=== PATIENT | male | born 1955 | race African-American/Black ===

== ENCOUNTER 2019-10-25 01:27 | Inpatient (IN) | payer MEDICARE, OTHER ==
[~2019-10-25] VITALS: Ht 182.9 cm; Wt 60.3 kg
[2019-10-25] MEDS ORDERED: NITROGLYCERIN 50MG PREMIX 250 ML IV ONE ×2 (02:00→02:07)
[2019-10-25] MEDS ORDERED: DILTIAZEM HCL 5MG/ML 5ML VIAL IV ONE (02:00)
[2019-10-25] MEDS ORDERED: ASPIRIN 81MG TABLET PO ONE (02:00)
[2019-10-25 02:31] LABS: BASOPHILS % 0.8 % (0.0-2.0); EOSINOPHILS % 0.2 % (0.0-5.0); HEMATOCRIT. 43.4 % (42.0-52.0); HEMOGLOBIN. 14.3 g/dL (14.0-18.0); LYMPHOCYTES % 15.4 % (20.0-50.0); MEAN CORPUSCULAR HEMOGLOBIN 27.1 pg (28.0-32.0); MEAN CORPUSCULAR VOLUME 82.2 fL (80.0-94.0); MEAN PLATELET VOLUME 8.7 fl (7.4-10.4); MONOCYTES % 10.1 % (2.0-8.0); NEUTROPHILS % 73.5 % (40.0-76.0); PLATELET 257 x1000/uL (130-400); RED BLOOD CELL COUNT 5.28 mill/uL (4.7-6.1); RED CELL DISTRIBUTION WIDTH 15.3 % (11.6-14.6)
[2019-10-25 02:35] LABS: CHLORIDE 100 mEq/L (98-107)
[2019-10-25 02:36] LABS: PARTIAL THROMBOPLASTIN TIME 23.6 sec (23.4-31.0); PROTHROMBIN TIME 11.1 sec (9.6-11.0)
[2019-10-25] MEDS ORDERED: IPRATROPIUM/ALBUTEROL 0.5-3(2.5)MG/3ML NEB HHN PRN (15:45)
[2019-10-25] MEDS ORDERED: CEFTRIAXONE 1 G PREMIX 50 ML IV SCH (16:26)
[2019-10-25] MEDS ORDERED: AZITHROMYCIN 500 MG in DEXT 5% WATER 250 ML IV SCH (16:30)
[2019-10-25] MEDS ORDERED: DEXTROSE 50% WATER 50ML SYRINGE IV PRN (17:15)
[2019-10-25] MEDS ORDERED: ACETAMINOPHEN 325MG TABLET PO PRN (17:15)
[2019-10-25 17:30] VITALS: BP 155/90
[2019-10-25 17:52] VITALS: BP 157/90
[2019-10-25] MEDS ORDERED: CEFTRIAXONE 1 G PREMIX 50 ML IV NR (18:00)
[2019-10-25] MEDS ORDERED: AZITHROMYCIN 500 MG in DEXT 5% WATER 250 ML IV NR (19:00)
[2019-10-25] MEDS: ASCORBIC ACID 500 MG TABLET PO SCH (19:10)
[2019-10-25] MEDS: ZINC SULFATE 220 MG ( 50 ) CAPSULE PO SCH (19:11)
[2019-10-25 20:00] VITALS: BP 160/85
[2019-10-25] MEDS: ENOXAPARIN 40MG/0.4ML SYR SUBCUT SCH (20:44)
[2019-10-25] MEDS: GUAIFENESIN 600MG ER TABLET PO SCH (20:45)
[2019-10-25] MEDS: INSULIN LISPRO 100 UNITS/ML SUBCUT SCH (20:48)
[2019-10-25] MEDS: BLOOD SUGAR DIAGNOSTIC STRIP TEST SCH (20:48)
[2019-10-26] VITALS: BP 165/89
[2019-10-26 07:02] LABS: BASOPHILS % 0.4 % (0.0-2.0); EOSINOPHILS % 0.1 % (0.0-5.0); HEMATOCRIT. 40.8 % (42.0-52.0); HEMOGLOBIN. 13.4 g/dL (14.0-18.0); LYMPHOCYTES % 11.9 % (20.0-50.0); MEAN CORPUSCULAR HEMOGLOBIN 26.8 pg (28.0-32.0); MEAN CORPUSCULAR VOLUME 81.7 fL (80.0-94.0); MEAN PLATELET VOLUME 8.8 fl (7.4-10.4); MONOCYTES % 11.7 % (2.0-8.0); NEUTROPHILS % 75.9 % (40.0-76.0); PLATELET 242 x1000/uL (130-400)
[2019-10-26] MEDS: BLOOD SUGAR DIAGNOSTIC STRIP TEST SCH ×4 (07:04→21:47)
[2019-10-26] MEDS: INSULIN LISPRO 100 UNITS/ML SUBCUT SCH ×4 (07:04→21:00)
[2019-10-26 07:09] LABS: CHLORIDE 104 mEq/L (98-107)
[2019-10-26 08:00] VITALS: BP 131/89
[2019-10-26 08:01] LABS: HEPATITIS B SURFACE ANTIGEN NEGATIVE
[2019-10-26 08:10] LABS: FERRITIN 1457 ng/mL (22-322)
[2019-10-26 08:31] LABS: HEPATITIS A AB IGM NEGATIVE (NEGATIVE)
[2019-10-26] MEDS: ASCORBIC ACID 500 MG TABLET PO SCH (09:42)
[2019-10-26] MEDS: GUAIFENESIN 600MG ER TABLET PO SCH ×2 (09:42→21:47)
[2019-10-26] MEDS: ZINC SULFATE 220 MG ( 50 ) CAPSULE PO SCH (09:42)
[2019-10-26 12:00] VITALS: BP 125/75
[2019-10-26 12:01] LABS: BG CARBOXYHEMOGLOBIN 0.1 % (0.5-1.5); BG DEOXYHEMOGLOBIN 0.5 % (0.0-5.0); BG FRACTION INSPIRED OXYGEN 100; BG HCO3 ACT 28.9 mmol/L (22.0-26.0); BG METHEMOGLOBIN 0.2 % (0.0-1.5); BG OXYGEN SATURATION 99.5 % (92.0-98.5); BG OXYHEMOGLOBIN 99.2 % (94.0-97.0); BG PCO2 44.8 mmHg (35.0-45.0); BG PH 7.428 (7.350-7.450); BG PO2 260.5 mmHg (75.0-100.0); BG SAMPLE SITE RIGHT RADIAL; BG TOTAL HEMOGLOBIN 13.8 g/dL (12.0-18.0); BG VENT MODE MASK - NRB
[2019-10-26] MEDS ORDERED: CEFTRIAXONE 1 G PREMIX 50 ML IV SCH (13:00)
[2019-10-26] MEDS ORDERED: IPRATROPIUM/ALBUTEROL 0.5-3(2.5)MG/3ML NEB HHN PRN (13:15)
[2019-10-26] MEDS ORDERED: LORAZEPAM 2MG/ML CPJ IV PRN (13:15)
[2019-10-26] MEDS: MULTIVITAMINS,THER W-MINERALS TABLET PO SCH (13:57)
[2019-10-26] MEDS: FOLIC ACID 1MG TABLET PO SCH (13:58)
[2019-10-26] MEDS: THIAMINE HCL 100MG TABLET PO SCH (13:58)
[2019-10-26] MEDS ORDERED: AZITHROMYCIN 500 MG in DEXT 5% WATER 250 ML IV SCH (14:00)
[2019-10-26 16:00] VITALS: BP 130/84
[2019-10-26 19:14] LABS: CLARITY URINE CLEAR (CLEAR); COLOR URINE YELLOW (YELLOW); KETONES URINE NEGATIVE (NEGATIVE); LEUKOCYTE ESTERASE URINE 1+ (NEGATIVE); NITRITE URINE NEGATIVE (NEGATIVE); OCCULT BLOOD URINE NEGATIVE (NEGATIVE); PH URINE 5.5 (4.5-8.0); PROTEIN URINE NEGATIVE (NEGATIVE)
[2019-10-26 19:26] LABS: *AMPHETAMINES SCREEN URINE NEGATIVE (NEGATIVE); *BARBITURATES SCREEN URINE NEGATIVE (NEGATIVE); *BENZODIAZEPINES SCREEN URINE NEGATIVE (NEGATIVE); *COCAINE SCREEN URINE PRESUMTIVE POSITIVE (NEGATIVE)
[2019-10-26 19:28] LABS: CANNABINOID URINE SCREEN NEGATIVE (NEGATIVE); METHADONE URINE SCREEN NEGATIVE (NEGATIVE); OPIATES URINE SCREEN NEGATIVE (NEGATIVE); PHENCYCLIDINE URINE SCREEN NEGATIVE (NEGATIVE)
[2019-10-26 20:00] VITALS: BP 151/86
[2019-10-26] MEDS: ENOXAPARIN 40MG/0.4ML SYR SUBCUT SCH (21:47)
[2019-10-27] VITALS (8 sets, daily range): BP systolic 136–168; BP diastolic 66–94
[2019-10-27] MEDS: IPRATROPIUM/ALBUTEROL 0.5-3(2.5)MG/3ML NEB HHN SCH ×3 (02:18→21:48)
[2019-10-27] MEDS: BLOOD SUGAR DIAGNOSTIC STRIP TEST SCH ×4 (06:02→21:00)
[2019-10-27] MEDS: INSULIN LISPRO 100 UNITS/ML SUBCUT SCH ×4 (06:45→21:00)
[2019-10-27] MEDS: MULTIVITAMINS,THER W-MINERALS TABLET PO SCH (08:35)
[2019-10-27] MEDS: ZINC SULFATE 220 MG ( 50 ) CAPSULE PO SCH (08:35)
[2019-10-27] MEDS: GUAIFENESIN 600MG ER TABLET PO SCH ×2 (08:35→22:06)
[2019-10-27] MEDS: FOLIC ACID 1MG TABLET PO SCH (08:35)
[2019-10-27] MEDS: THIAMINE HCL 100MG TABLET PO SCH (08:35)
[2019-10-27] MEDS: ASCORBIC ACID 500 MG TABLET PO SCH (08:35)
[2019-10-27] MEDS ORDERED: LEVO500T2 MT (11:44)
[2019-10-27] MEDS ORDERED: ALBU18HF2 IH (11:44)
[2019-10-27] MEDS ORDERED: AZITHROMYCIN 500 MG in DEXT 5% WATER 250 ML IV SCH (15:00)
[2019-10-27] MEDS: CEFTRIAXONE 1 G PREMIX 50 ML IV SCH (15:00)
[2019-10-27] MEDS: ENOXAPARIN 40MG/0.4ML SYR SUBCUT SCH (22:06)
[2019-10-28] VITALS: BP 166/102
[2019-10-28] MEDS ORDERED: CLONIDINE 0.1MG TABLET PO PRN (01:00)
[2019-10-28 04:00] VITALS: BP 167/96
[2019-10-28] MEDS: INSULIN LISPRO 100 UNITS/ML SUBCUT SCH ×3 (06:27→16:58)
[2019-10-28] MEDS: BLOOD SUGAR DIAGNOSTIC STRIP TEST SCH ×3 (06:27→16:57)
[2019-10-28 07:55] VITALS: BP 131/70
[2019-10-28] MEDS: THIAMINE HCL 100MG TABLET PO SCH (08:55)
[2019-10-28] MEDS: ZINC SULFATE 220 MG ( 50 ) CAPSULE PO SCH (08:55)
[2019-10-28] MEDS: ASCORBIC ACID 500 MG TABLET PO SCH (08:55)
[2019-10-28] MEDS: FOLIC ACID 1MG TABLET PO SCH (08:55)
[2019-10-28] MEDS: MULTIVITAMINS,THER W-MINERALS TABLET PO SCH (08:55)
[2019-10-28] MEDS ORDERED: AZITHROMYCIN 500 MG TABLET PO SCH (09:00)
[2019-10-28] MEDS: IPRATROPIUM/ALBUTEROL 0.5-3(2.5)MG/3ML NEB HHN SCH ×2 (09:16→14:47)
[2019-10-28 12:00] VITALS: BP 122/83
[2019-10-28] MEDS: GUAIFENESIN 600MG ER TABLET PO SCH (12:48)
[2019-10-28] MEDS: CEFTRIAXONE 1 G PREMIX 50 ML IV SCH (12:48)
[2019-10-28 16:00] VITALS: BP 137/67
[2019-10-29] MEDS ORDERED: MED4 MT (10:04)
== END 2019-10-28 17:00 | disposition home or self-care (01) | DRG 720 ==
LOC: ER 01:27 → 7EST 02:52 → ENRESERV 15:34 → 5WST 10-26 16:16
PROVIDERS: ADMIT Internal Medicine; ATTEND Internal Medicine
DX: A41.9 Sepsis, unspecified organism (principal); J96.00 Acute respiratory failure, unspecified whether with hypoxia or hypercapnia; E87.2 Acidosis; T40.5X1A Poisoning by cocaine, accidental (unintentional), initial encounter; R65.11 Systemic inflammatory response syndrome (SIRS) of non-infectious origin with acute organ dysfunction; J68.0 Bronchitis and pneumonitis due to chemicals, gases, fumes and vapors; I47.1 Supraventricular tachycardia; F10.10 Alcohol abuse, uncomplicated; G47.00 Insomnia, unspecified; E78.00 Pure hypercholesterolemia, unspecified; Z20.828 Contact with and (suspected) exposure to other viral communicable diseases; E11.9 Type 2 diabetes mellitus without complications; R74.0 Nonspecific elevation of levels of transaminase and lactic acid dehydrogenase [LDH]; F17.200 Nicotine dependence, unspecified, uncomplicated; I10 Essential (primary) hypertension; E78.5 Hyperlipidemia, unspecified; I16.0 Hypertensive urgency; Z91.14 Patient's other noncompliance with medication regimen; Y92.89 Other specified places as the place of occurrence of the external cause; Z71.6 Tobacco abuse counseling
CPT/HCPCS: 36415; 36600; 71045; 80053; 80305; 81003; 82375; 82728; 82805; 82962; 83605; 83615; 83880; 84145; 84484; 85025; 85379; 86140; 86705; 86709; 86803; 87340; 87635; 87804; 93005; 94640; 99291; J0456; J0696; J1650; J1815; J3490; J7060

== ENCOUNTER 2019-10-28 20:47 | Inpatient (IN) | payer MEDICARE, OTHER ==
[~2019-10-28] VITALS: Ht 175.3 cm; Wt 56.2 kg
[~2019-10-28 20:47] MED LIST: ALBU18HF2 IH; LEVO500T2 MT
[2019-10-28] MEDS ORDERED: IPRATROPIUM BROMIDE (0.02%) 0.5MG/2.5ML NEB HHN STA (22:49)
[2019-10-28] MEDS ORDERED: ALBUTEROL (0.083%) 2.5MG/3ML NEB HHN STA (22:49)
[2019-10-29] VITALS (7 sets, daily range): BP systolic 133–165; BP diastolic 70–94
[2019-10-29] MEDS ORDERED: ACETAMINOPHEN 325MG TABLET PO STA (02:21)
[2019-10-29] MEDS ORDERED: SODIUM CHLORIDE 0.9% 500 ML IV ONE (02:21)
[2019-10-29] MEDS ORDERED: AZITHROMYCIN 500 MG in DEXT 5% WATER 250 ML IV ONE (02:30)
[2019-10-29] MEDS ORDERED: CEFTRIAXONE 1 G PREMIX 50 ML IV ONE (02:30)
[2019-10-29 03:35] LABS: BASOPHILS % 0.2 % (0.0-2.0); HEMATOCRIT. 39.2 % (42.0-52.0); HEMOGLOBIN. 13.1 g/dL (14.0-18.0); LYMPHOCYTES % 13.1 % (20.0-50.0); MEAN CORPUSCULAR HEMOGLOBIN 27.2 pg (28.0-32.0); MEAN CORPUSCULAR VOLUME 81.2 fL (80.0-94.0); MEAN PLATELET VOLUME 8.5 fl (7.4-10.4); MONOCYTES % 10.1 % (2.0-8.0); NEUTROPHILS % 76.6 % (40.0-76.0); PLATELET 247 x1000/uL (130-400); RED BLOOD CELL COUNT 4.83 mill/uL (4.7-6.1); RED CELL DISTRIBUTION WIDTH 14.8 % (11.6-14.6)
[2019-10-29 03:43] LABS: PROTHROMBIN TIME 11.3 sec (9.6-11.0)
[2019-10-29 03:48] LABS: CHLORIDE 104 mEq/L (98-107)
[2019-10-29] MEDS ORDERED: ALBUTEROL (0.083%) 2.5MG/3ML NEB HHN STA (04:10)
[2019-10-29] MEDS ORDERED: IPRATROPIUM BROMIDE (0.02%) 0.5MG/2.5ML NEB HHN STA (04:10)
[2019-10-29] MEDS ORDERED: SODIUM CHLORIDE 0.9% 1,600 ML IV ONE (04:10)
[2019-10-29 06:20] LABS: *AMPHETAMINES SCREEN URINE NEGATIVE (NEGATIVE); *BARBITURATES SCREEN URINE NEGATIVE (NEGATIVE)
[2019-10-29 06:21] LABS: *BENZODIAZEPINES SCREEN URINE NEGATIVE (NEGATIVE); *COCAINE SCREEN URINE PRESUMTIVE POSITIVE (NEGATIVE); METHADONE URINE SCREEN NEGATIVE (NEGATIVE); OPIATES URINE SCREEN PRESUMTIVE POSITIVE (NEGATIVE); PHENCYCLIDINE URINE SCREEN NEGATIVE (NEGATIVE)
[2019-10-29 06:22] LABS: CANNABINOID URINE SCREEN NEGATIVE (NEGATIVE)
[2019-10-29] MEDS ORDERED: ADENOSINE 3 MG/ML 2ML VIAL IV ONE (06:36)
[2019-10-29] MEDS ORDERED: NITROGLYCERIN 50MG PREMIX 250 ML IV ONE (06:55)
[2019-10-29 09:44] LABS: BG BASE EXCESS -2.3 mmol/L (-2.0-2.0); BG BILEVEL POS AIRWAY PRESSURE 20/7 (24); BG CARBOXYHEMOGLOBIN 0.1 % (0.5-1.5); BG FRACTION INSPIRED OXYGEN 100; BG HCO3 ACT 22.5 mmol/L (22.0-26.0); BG METHEMOGLOBIN 0.2 % (0.0-1.5); BG OXYHEMOGLOBIN 98.7 % (94.0-97.0); BG PCO2 38.7 mmHg (35.0-45.0); BG PH 7.382 (7.350-7.450); BG PO2 160.7 mmHg (75.0-100.0); BG SAMPLE SITE RIGHT RADIAL; BG VENT MODE MASK - BIPAP
[2019-10-29] MEDS ORDERED: MED4 MT (10:04)
[2019-10-29] MEDS ORDERED: FUROSEMIDE 40MG/4ML VIAL IVP NR (10:15)
[2019-10-29] MEDS: METHYLPREDNISOLONE SOD SUCC 40 MG/ML VIAL IV SCH ×2 (10:56→17:17)
[2019-10-29] MEDS: ENOXAPARIN 40MG/0.4ML SYR SUBCUT SCH (10:56)
[2019-10-29] MEDS ORDERED: DEXTROSE 50% WATER 50ML SYRINGE IV PRN (12:30)
[2019-10-29] MEDS: LEVOFLOXACIN 500MG PREMIX 100 ML IV SCH (13:24)
[2019-10-29] MEDS: INSULIN LISPRO 100 UNITS/ML SUBCUT SCH ×3 (13:24→21:30)
[2019-10-29] MEDS: BLOOD SUGAR DIAGNOSTIC STRIP TEST SCH ×3 (13:25→21:00)
[2019-10-29] MEDS: IPRATROPIUM/ALBUTEROL 0.5-3(2.5)MG/3ML NEB HHN SCH ×3 (14:19→21:35)
[2019-10-29 15:59] LABS: CHLORIDE 103 mEq/L (98-107)
[2019-10-29] MEDS: CLONIDINE 0.1MG TABLET PO PRN (18:38)
[2019-10-30] VITALS (11 sets, daily range): BP systolic 118–186; BP diastolic 65–112
[2019-10-30] MEDS: METHYLPREDNISOLONE SOD SUCC 40 MG/ML VIAL IV SCH ×3 (01:32→18:19)
[2019-10-30] MEDS: CLONIDINE 0.1MG TABLET PO PRN ×2 (04:29→08:49)
[2019-10-30] MEDS: BLOOD SUGAR DIAGNOSTIC STRIP TEST SCH ×4 (07:30→20:46)
[2019-10-30] MEDS: IPRATROPIUM/ALBUTEROL 0.5-3(2.5)MG/3ML NEB HHN SCH ×4 (07:40→22:29)
[2019-10-30] MEDS: INSULIN LISPRO 100 UNITS/ML SUBCUT SCH ×4 (08:00→20:46)
[2019-10-30] MEDS: ENOXAPARIN 40MG/0.4ML SYR SUBCUT SCH (08:44)
[2019-10-30] MEDS: LEVOFLOXACIN 500MG PREMIX 100 ML IV SCH (12:10)
[2019-10-30] MEDS: DILTIAZEM HCL 60MG TABLET PO SCH ×3 (12:11→23:40)
[2019-10-30 13:42] LABS: BG BASE EXCESS 2.5 mmol/L (-2.0-2.0); BG DEOXYHEMOGLOBIN 8.6 % (0.0-5.0); BG FRACTION INSPIRED OXYGEN 21; BG HCO3 ACT 26.4 mmol/L (22.0-26.0); BG METHEMOGLOBIN 0.3 % (0.0-1.5); BG OXYGEN SATURATION 91.4 % (92.0-98.5); BG OXYHEMOGLOBIN 91.1 % (94.0-97.0); BG PH 7.459 (7.350-7.450); BG PO2 61.5 mmHg (75.0-100.0); BG SAMPLE SITE RIGHT RADIAL; BG TOTAL HEMOGLOBIN 12.9 g/dL (12.0-18.0); BG VENT MODE ROOM AIR
[2019-10-30] MEDS: LOSARTAN POTASSIUM 50 MG TABLET PO SCH (17:30)
[2019-10-30] MEDS ORDERED: FUROSEMIDE 20MG/2ML VIAL IVP ONE (20:00)
[2019-10-30] MEDS ORDERED: IOHEXOL-350 100 ML BOTTLE ONE (23:11)
[2019-10-31] VITALS (12 sets, daily range): BP systolic 136–176; BP diastolic 74–98
[2019-10-31] MEDS: METHYLPREDNISOLONE SOD SUCC 40 MG/ML VIAL IV SCH ×2 (02:18→09:18)
[2019-10-31] MEDS: CLONIDINE 0.1MG TABLET PO PRN ×2 (02:18→20:31)
[2019-10-31] MEDS: DILTIAZEM HCL 60MG TABLET PO SCH ×3 (05:30→18:41)
[2019-10-31] MEDS: BLOOD SUGAR DIAGNOSTIC STRIP TEST SCH ×4 (07:30→20:26)
[2019-10-31] MEDS: INSULIN LISPRO 100 UNITS/ML SUBCUT SCH ×4 (08:00→20:33)
[2019-10-31] MEDS: ACETAMINOPHEN 325MG TABLET PO PRN (09:16)
[2019-10-31] MEDS: LOSARTAN POTASSIUM 50 MG TABLET PO SCH (09:17)
[2019-10-31] MEDS: ENOXAPARIN 40MG/0.4ML SYR SUBCUT SCH (09:17)
[2019-10-31] MEDS ORDERED: LORAZEPAM 2MG/ML CPJ IV PRN (11:30)
[2019-10-31] MEDS: LEVOFLOXACIN 500MG TABLET PO SCH (13:27)
[2019-10-31] MEDS: IPRATROPIUM/ALBUTEROL 0.5-3(2.5)MG/3ML NEB HHN SCH ×2 (16:24→22:19)
[2019-10-31 16:33] LABS: CHLORIDE 101 mEq/L (98-107)
[2019-10-31 17:45] LABS: CHLORIDE 102 mEq/L (98-107)
[2019-11-01] VITALS (12 sets, daily range): BP systolic 120–151; BP diastolic 60–95
[2019-11-01] MEDS: DILTIAZEM HCL 60MG TABLET PO SCH ×4 (00:38→17:53)
[2019-11-01 07:24] LABS: BASOPHILS % 0.4 % (0.0-2.0); EOSINOPHILS % 0.2 % (0.0-5.0); HEMATOCRIT. 37.9 % (42.0-52.0); HEMOGLOBIN. 12.7 g/dL (14.0-18.0); LYMPHOCYTES % 8.5 % (20.0-50.0); MEAN CORPUSCULAR VOLUME 80.8 fL (80.0-94.0); MEAN PLATELET VOLUME 8.5 fl (7.4-10.4); MONOCYTES % 10.6 % (2.0-8.0); NEUTROPHILS % 80.3 % (40.0-76.0); PLATELET 280 x1000/uL (130-400); RED BLOOD CELL COUNT 4.69 mill/uL (4.7-6.1); RED CELL DISTRIBUTION WIDTH 14.7 % (11.6-14.6)
[2019-11-01 07:38] LABS: CHLORIDE 104 mEq/L (98-107)
[2019-11-01] MEDS: INSULIN LISPRO 100 UNITS/ML SUBCUT SCH ×4 (08:00→21:52)
[2019-11-01] MEDS: ENOXAPARIN 40MG/0.4ML SYR SUBCUT SCH (08:22)
[2019-11-01] MEDS: LOSARTAN POTASSIUM 50 MG TABLET PO SCH (08:23)
[2019-11-01] MEDS: PREDNISONE 20MG TABLET PO SCH (08:23)
[2019-11-01] MEDS: BLOOD SUGAR DIAGNOSTIC STRIP TEST SCH ×4 (08:23→21:50)
[2019-11-01] MEDS: IPRATROPIUM/ALBUTEROL 0.5-3(2.5)MG/3ML NEB HHN SCH ×3 (09:25→16:55)
[2019-11-01] MEDS: ACETAMINOPHEN 325MG TABLET PO PRN ×2 (10:41→17:53)
[2019-11-01] MEDS: LEVOFLOXACIN 500MG TABLET PO SCH (10:46)
[2019-11-01] MEDS ORDERED: FLUT1DIS3 INH (12:01)
[2019-11-01] MEDS: MAGNESIUM/ALUMINUM HYDROXIDE/SIMETHICONE 30ML UDC PO PRN (22:23)
[2019-11-01] MEDS: OMEPRAZOLE 20MG CAPSULE EXTENDED RELEASE PO SCH (22:23)
[2019-11-02] VITALS (13 sets, daily range): BP systolic 124–166; BP diastolic 65–93
[2019-11-02] MEDS: MAGNESIUM/ALUMINUM HYDROXIDE/SIMETHICONE 30ML UDC PO PRN (06:09)
[2019-11-02] MEDS: DILTIAZEM HCL 60MG TABLET PO SCH ×5 (06:10→23:33)
[2019-11-02] MEDS: BLOOD SUGAR DIAGNOSTIC STRIP TEST SCH ×4 (07:30→20:48)
[2019-11-02] MEDS: INSULIN LISPRO 100 UNITS/ML SUBCUT SCH ×4 (08:00→20:58)
[2019-11-02] MEDS: IPRATROPIUM/ALBUTEROL 0.5-3(2.5)MG/3ML NEB HHN SCH ×3 (08:16→15:58)
[2019-11-02] MEDS: LOSARTAN POTASSIUM 50 MG TABLET PO SCH (08:44)
[2019-11-02] MEDS: ENOXAPARIN 40MG/0.4ML SYR SUBCUT SCH (08:44)
[2019-11-02] MEDS: PREDNISONE 20MG TABLET PO SCH (08:44)
[2019-11-02] MEDS: OMEPRAZOLE 20MG CAPSULE EXTENDED RELEASE PO SCH (08:45)
[2019-11-02] MEDS ORDERED: FUROSEMIDE 40MG/4ML VIAL IVP SCH (09:00)
[2019-11-02 11:02] LABS: BASOPHILS % 0.2 % (0.0-2.0); HEMATOCRIT. 40.8 % (42.0-52.0); HEMOGLOBIN. 13.3 g/dL (14.0-18.0); LYMPHOCYTES % 9.5 % (20.0-50.0); MEAN CORPUSCULAR HEMOGLOBIN 26.8 pg (28.0-32.0); MEAN CORPUSCULAR VOLUME 81.7 fL (80.0-94.0); MEAN PLATELET VOLUME 8.3 fl (7.4-10.4); MONOCYTES % 9.6 % (2.0-8.0); NEUTROPHILS % 80.7 % (40.0-76.0); PLATELET 297 x1000/uL (130-400); RED BLOOD CELL COUNT 4.99 mill/uL (4.7-6.1); RED CELL DISTRIBUTION WIDTH 15.3 % (11.6-14.6)
[2019-11-02] MEDS: LEVOFLOXACIN 500MG TABLET PO SCH (11:24)
[2019-11-02 11:26] LABS: CHLORIDE 103 mEq/L (98-107)
[2019-11-02] MEDS: GUAIFENESIN/DM 600MG/30MG ER TAB 12HR PO PRN (12:33)
[2019-11-02] MEDS ORDERED: FURO-152 MT (14:17)
[2019-11-02] MEDS: ACETAMINOPHEN 325MG TABLET PO PRN (18:33)
[2019-11-02] MEDS: FAMOTIDINE 20MG TABLET PO SCH (20:48)
[2019-11-03] VITALS (12 sets, daily range): BP systolic 112–150; BP diastolic 62–80
[2019-11-03] MEDS: ACETAMINOPHEN 325MG TABLET PO PRN (00:21)
[2019-11-03] MEDS: DILTIAZEM HCL 60MG TABLET PO SCH ×4 (05:17→23:02)
[2019-11-03] MEDS: INSULIN LISPRO 100 UNITS/ML SUBCUT SCH ×4 (08:00→20:20)
[2019-11-03] MEDS: BLOOD SUGAR DIAGNOSTIC STRIP TEST SCH ×4 (08:29→21:00)
[2019-11-03] MEDS: IPRATROPIUM/ALBUTEROL 0.5-3(2.5)MG/3ML NEB HHN SCH ×2 (10:05→16:31)
[2019-11-03] MEDS: GUAIFENESIN/DM 600MG/30MG ER TAB 12HR PO PRN (11:03)
[2019-11-03] MEDS: ENOXAPARIN 40MG/0.4ML SYR SUBCUT SCH (11:04)
[2019-11-03] MEDS: FAMOTIDINE 20MG TABLET PO SCH ×2 (11:04→20:01)
[2019-11-03] MEDS: LOSARTAN POTASSIUM 50 MG TABLET PO SCH (11:04)
[2019-11-03] MEDS: PREDNISONE 20MG TABLET PO SCH (11:04)
[2019-11-03] MEDS ORDERED: DILT240C91 MT (12:14)
[2019-11-03 14:54] LABS: BG BASE EXCESS 4.7 mmol/L (-2.0-2.0); BG CARBOXYHEMOGLOBIN 0.3 % (0.5-1.5); BG DEOXYHEMOGLOBIN 3.7 % (0.0-5.0); BG FRACTION INSPIRED OXYGEN 36; BG HCO3 ACT 29.4 mmol/L (22.0-26.0); BG METHEMOGLOBIN 0.1 % (0.0-1.5); BG OXYGEN SATURATION 96.3 % (92.0-98.5); BG OXYHEMOGLOBIN 95.9 % (94.0-97.0); BG PCO2 43.7 mmHg (35.0-45.0); BG PH 7.445 (7.350-7.450); BG PO2 84.4 mmHg (75.0-100.0); BG SAMPLE SITE RIGHT RADIAL; BG TOTAL HEMOGLOBIN 13.6 g/dL (12.0-18.0); BG VENT MODE NASAL CANNULA
[2019-11-03] MEDS: FUROSEMIDE 40MG/4ML VIAL IVP SCH (17:27)
[2019-11-03] MEDS: ONDANSETRON HCL 4MG/2ML INJ IV PRN (23:02)
[2019-11-04] VITALS (13 sets, daily range): BP systolic 100–155; BP diastolic 61–87
[2019-11-04] MEDS: ONDANSETRON HCL 4MG/2ML INJ IV PRN ×2 (05:53→12:42)
[2019-11-04] MEDS: DILTIAZEM HCL 60MG TABLET PO SCH ×3 (05:59→18:00)
[2019-11-04] MEDS: BLOOD SUGAR DIAGNOSTIC STRIP TEST SCH ×4 (07:55→21:25)
[2019-11-04] MEDS: INSULIN LISPRO 100 UNITS/ML SUBCUT SCH ×4 (08:00→21:00)
[2019-11-04] MEDS: IPRATROPIUM/ALBUTEROL 0.5-3(2.5)MG/3ML NEB HHN SCH ×3 (08:00→16:30)
[2019-11-04] MEDS: FAMOTIDINE 20MG TABLET PO SCH ×2 (08:54→21:33)
[2019-11-04] MEDS: PREDNISONE 20MG TABLET PO SCH (08:54)
[2019-11-04] MEDS: LOSARTAN POTASSIUM 50 MG TABLET PO SCH (08:54)
[2019-11-04] MEDS: ENOXAPARIN 40MG/0.4ML SYR SUBCUT SCH (08:57)
[2019-11-04] MEDS: FUROSEMIDE 40MG/4ML VIAL IVP SCH (09:33)
[2019-11-04] MEDS: LEVOFLOXACIN 500MG TABLET PO SCH (12:57)
[2019-11-04] MEDS ORDERED: METF-416 MT (13:42)
[2019-11-04] MEDS ORDERED: LORAZEPAM 2MG/ML CPJ IV PRN (16:00)
[2019-11-04] MEDS ORDERED: IOHEXOL-350 100 ML BOTTLE ONE (20:38)
[2019-11-04] MEDS: ENOXAPARIN 60MG/0.6ML SYR SUBCUT SCH (21:32)
[2019-11-05] VITALS (10 sets, daily range): BP systolic 115–162; BP diastolic 65–83
[2019-11-05] MEDS: DILTIAZEM HCL 60MG TABLET PO SCH ×4 (00:13→18:00)
[2019-11-05] MEDS: INSULIN LISPRO 100 UNITS/ML SUBCUT SCH ×3 (08:30→18:00)
[2019-11-05] MEDS: IPRATROPIUM/ALBUTEROL 0.5-3(2.5)MG/3ML NEB HHN SCH ×3 (08:35→16:45)
[2019-11-05] MEDS: ENOXAPARIN 60MG/0.6ML SYR SUBCUT SCH (09:05)
[2019-11-05] MEDS: FUROSEMIDE 40MG/4ML VIAL IVP SCH (09:05)
[2019-11-05] MEDS: PREDNISONE 20MG TABLET PO SCH (09:06)
[2019-11-05] MEDS: BLOOD SUGAR DIAGNOSTIC STRIP TEST SCH ×3 (09:06→17:30)
[2019-11-05] MEDS: FAMOTIDINE 20MG TABLET PO SCH (09:08)
[2019-11-05] MEDS: LOSARTAN POTASSIUM 50 MG TABLET PO SCH (10:00)
[2019-11-05] MEDS: LEVOFLOXACIN 500MG TABLET PO SCH (13:28)
[2019-11-05 18:07] LABS: BG BASE EXCESS 2.5 mmol/L (-2.0-2.0); BG CARBOXYHEMOGLOBIN 0.4 % (0.5-1.5); BG DEOXYHEMOGLOBIN 11.8 % (0.0-5.0); BG FRACTION INSPIRED OXYGEN 28; BG HCO3 ACT 27.5 mmol/L (22.0-26.0); BG OXYGEN SATURATION 88.2 % (92.0-98.5); BG OXYHEMOGLOBIN 87.8 % (94.0-97.0); BG PCO2 43.8 mmHg (35.0-45.0); BG PH 7.416 (7.350-7.450); BG PO2 55.8 mmHg (75.0-100.0); BG SAMPLE SITE RIGHT RADIAL; BG TOTAL HEMOGLOBIN 13.9 g/dL (12.0-18.0); BG VENT MODE NASAL CANNULA
== END 2019-11-05 19:00 | disposition home or self-care (01) | DRG 816 ==
LOC: ER 20:47 → 5EST 10-29 04:24 → EDBEDREQ 10-29 04:27 → EDBEDREQSVC 10-29 04:27 → EDBEDREQTM 10-29 04:27 → ENRESERV 10-29 07:25
PROVIDERS: ADMIT Internal Medicine; ATTEND Internal Medicine
PROC: 5A09357 Assistance with Respiratory Ventilation, Less than 24 Consecutive Hours, Continuous Positive Airway Pressure (ICD-10-PCS; principal; 2019-10-29)
PROC: 5A09357 Assistance with Respiratory Ventilation, Less than 24 Consecutive Hours, Continuous Positive Airway Pressure (ICD-10-PCS; 2019-10-30)
PROC: 5A09357 Assistance with Respiratory Ventilation, Less than 24 Consecutive Hours, Continuous Positive Airway Pressure (ICD-10-PCS; 2019-11-02)
PROC: 5A09357 Assistance with Respiratory Ventilation, Less than 24 Consecutive Hours, Continuous Positive Airway Pressure (ICD-10-PCS; 2019-11-03)
PROC: 5A09357 Assistance with Respiratory Ventilation, Less than 24 Consecutive Hours, Continuous Positive Airway Pressure (ICD-10-PCS; 2019-11-04)
PROC: 5A09357 Assistance with Respiratory Ventilation, Less than 24 Consecutive Hours, Continuous Positive Airway Pressure (ICD-10-PCS; 2019-11-05)
DX: T40.5X1A Poisoning by cocaine, accidental (unintentional), initial encounter (principal); J96.01 Acute respiratory failure with hypoxia; A41.9 Sepsis, unspecified organism; I50.21 Acute systolic (congestive) heart failure; J18.9 Pneumonia, unspecified organism; I27.20 Pulmonary hypertension, unspecified; I31.3 Pericardial effusion (noninflammatory); E44.1 Mild protein-calorie malnutrition; I11.0 Hypertensive heart disease with heart failure; I47.1 Supraventricular tachycardia; J68.0 Bronchitis and pneumonitis due to chemicals, gases, fumes and vapors; E11.9 Type 2 diabetes mellitus without complications; E78.5 Hyperlipidemia, unspecified; F17.210 Nicotine dependence, cigarettes, uncomplicated; R74.0 Nonspecific elevation of levels of transaminase and lactic acid dehydrogenase [LDH]; F14.10 Cocaine abuse, uncomplicated; Z91.14 Patient's other noncompliance with medication regimen; Z68.1 Body mass index [BMI] 19.9 or less, adult; Y92.89 Other specified places as the place of occurrence of the external cause; Z71.51 Drug abuse counseling and surveillance of drug abuser; Z71.6 Tobacco abuse counseling
CPT/HCPCS: 36415; 36600; 71045; 76770; 78580; 80048; 80053; 80305; 82375; 82805; 82962; 83036; 83605; 83880; 84145; 84295; 84443; 84484; 85025; 87070; 93005; 93306; 93970; 94618; 94640; 94660; 99291; J0153; J0456; J0696; J1650; J1815; J1940; J1956; J2060; J2405; J2920; J3490; J7030; J7060; J7512; Q9967